=== PATIENT | male | born 1955 | race Caucasian/White ===

== ENCOUNTER 2017-05-17 20:48 | Emergency (ER) | payer BC ==
[2017-05-17 20:58] VITALS: BP 173/86; PULSE 78; TEMP 98.6; BMI 32.1
[2017-05-17] MEDS ORDERED: LIDO 2%/EPI 1:200000 PRESRVFRE (20 ML SDVIAL) ONE (20:58)
--- NOTE | 2017-05-17 20:58 | PDOC ---
History of Present Illness - General Chief Complaint: Injury Stated Complaint: LACERATION TO TOP OF HEAD. hIT HEAD ON THE CABINET Time Seen by Provider: 05/17/17 20:53 History Source: Patient Exam Limitations: No Limitations Past History - Past Medical History Allergies/Adverse Reactions: Allergies Allergy/AdvReac Type Severity Reaction Status Date / Time No Known Allergies Allergy Verified 05/17/17 20:50 Home Medications: Ambulatory Orders Amlodipine Besylate mg PO 05/17/17 Atorvastatin Ca [Lipitor] mg PO HS 05/17/17 Metformin HCl mg PO 05/17/17 Sertraline HCl mg PO 05/17/17 Valsartan/Hydrochlorothiazide [Valsartan-Hctz 160-12.5 mg Tab] each PO 05/17/17 *DC/Admit/Observation/Transfer - Discharge Dispostion Condition at time of disposition: Good - Referrals - Patient Instructions - Post Discharge Activity
[2017-05-17] MEDS ORDERED: DIPHTH,PERTUSS(ACELL),TET 0.5 ML DISP.SYRIN IM ONE (20:59)
--- NOTE | 2017-05-17 21:01 | PDOC ---
History of Present Illness - General History Source: Patient Exam Limitations: No Limitations - History of Present Illness Initial Comments: 05/17/17 21:02 The patient is a 61-year-old, with a significant past medical history of HTN and diabetes, who presents to the ED s/p sustaining a laceration to the top of his head an hour prior to presentation. The patient was seated at his desk and got up quickly to answer the phone and had left a cabinet door open. Pt is not on any anticoagulation medications. He denies any lightheadedness or blurry vision. He denies having any other injuries or symptoms. PAST MEDICAL HISTORY: HTN and diabetes PAST SURGICAL HISTORY: no significant history FAMILY HISTORY: no pertinent history SOCIAL HISTORY: Pt lives with family. MEDICATIONS: reviewed ALLERGIES: As per nursing notes General: No fevers or chills, no weakness, no weight loss HEENT: No change in vision. No sore throat,. No ear pain CardioVascular: No chest pain or shortness of breath Respiratory:No cough, or wheezing. Gastrointestinal: no nausea, vomiting, diarrhea or constipation, No rectal bleeding Genitourinary: No dysuria, hematuria, or frequency Musculoskeletal: No joint or muscle pain or swelling Neurologic: No headache, vertigo, dizziness or loss of consciousness Psychiatric: nor depression Skin: (+)laceration to the top of head. Endocrine: no increased thirst or abnormal weight change Allergic: no skin or latex allergy All other systems reviewed and normal GENERAL: The patient is awake, alert, and fully oriented, in no acute distress. HEAD: (+)Approximately 2 cm laceration on top of head. No active bleeding. No tenderness to palpation of cervical spine. EYES: Pupils equal, round and reactive to light, extraocular movements intact, sclera anicteric, conjunctiva clear. EXTREMITIES: Normal range of motion, no edema. NEUROLOGICAL: Normal speech, normal gait. PSYCH: Normal mood, normal affect. SKIN: Warm, Dry, normal turgor. <Ciara Roberson - Last Filed: 05/17/17 21:01> - General History Source: Patient Exam Limitations: No Limitations - History of Present Illness Initial Comments: A portion of this note was documented by scribe services under my direction. I have reviewed the details of the note, within reason, and agree with the documentation. The case summary and management plan written by me. Procedure note laceration repair Laceration anesthetized with 2% lidocaine pain with epinephrine. Laceration cleaned and closed with 2 mayra. Bacitracin applied patient tolerated well Assessment and plan: This is a 61-year-old male who comes in complaining of a laceration to the top of his head. Patient stood up quickly and hit in overhead cabinet that was left open. Patient had a small 2 cm laceration that was closed with mayra. Patient given head injury discharge instructions Patient discharged discharged home with his 05/17/17 21:21 <Rock Arita I - Last Filed: 05/17/17 21:23> - General Chief Complaint: Injury Stated Complaint: LACERATION TO TOP OF HEAD. hIT HEAD ON THE CABINET Time Seen by Provider: 05/17/17 20:53 Past History <Ciara Roberson - Last Filed: 05/17/17 21:01> - Past Medical History COPD: No Diabetes: Yes HTN: Yes Hypercholesterolemia: Yes Other medical history: GLUCOMA - Immunization History Immunization Up to Date: No - Suicide/Smoking/Psychosocial Hx Smoking History: Never smoked Hx Alcohol Use: No Drug/Substance Use Hx: No Substance Use Type: None <Rokc Arita I - Last Filed: 05/17/17 21:23> - Past Medical History Allergies/Adverse Reactions: Allergies Allergy/AdvReac Type Severity Reaction Status Date / Time No Known Allergies Allergy Verified 05/17/17 20:50 Home Medications: Ambulatory Orders Amlodipine Besylate mg PO 05/17/17 Atorvastatin Ca [Lipitor] mg PO HS 05/17/17 Metformin HCl mg PO 05/17/17 Sertraline HCl mg PO 05/17/17 Valsartan/Hydrochlorothiazide [Valsartan-Hctz 160-12.5 mg Tab] each PO 05/17/17 Review of Systems - Review of Systems Able to Perform ROS?: Yes <Ciara Roberson - Last Filed: 05/17/17 21:01> *Physical Exam - Vital Signs Last Vital Signs Temp Pulse Resp BP Pulse Ox 98.6 F 78 18 173/86 97 05/17/17 20:53 05/17/17 20:53 05/17/17 20:53 05/17/17 20:53 05/17/17 20:53 <Ciara Roberson - Last Filed: 05/17/17 21:01> - Vital Signs Last Vital Signs Temp Pulse Resp BP Pulse Ox 98.6 F 78 18 173/86 97 05/17/17 20:53 05/17/17 20:53 05/17/17 20:53 05/17/17 20:53 05/17/17 20:53 <Rock Arita I - Last Filed: 05/17/17 21:23> *DC/Admit/Observation/Transfer - Attestations Scribe Attestion: 05/17/17 21:05 Documentation prepared by Ciara Roberson, acting as medical billing coder for Rock Arita MD. <Ciara Roberson - Last Filed: 05/17/17 21:01> <Rock Arita I - Last Filed: 05/17/17 21:23> Diagnosis at time of Disposition: Laceration of scalp Qualifiers: Encounter type: initial encounter Qualified Code(s): S01.01XA - Laceration without foreign body of scalp, initial encounter - Discharge Dispostion Disposition: HOME Condition at time of disposition: Good - Patient Instructions Printed Discharge Instructions: DI for Closed Head Injury Additional Instructions: Staple removal in 7-9 days staple removal in 7-9 days. Keep the laceration dry for the next 72 hours. After 72 hours you can take a shower or get it wet. Return to the emergency department immediately with ANY new, persistent or worsening symptoms. Continue any medications as previously prescribed by your physician. You should follow up with your primary doctor as soon as possible regarding today's emergency department visit. . Please make sure your doctor reviews the results of your emergency evaluation. Thank you for coming to the Emergency Department today for your care. It was a pleasure to see you today. Please note that your evaluation is INCOMPLETE until you follow-up with your doctor.
== END 2017-05-17 21:15 | disposition home or self-care (01) ==
LOC: FER 20:48
PROC: 3E0234Z Introduction of Serum, Toxoid and Vaccine into Muscle, Percutaneous Approach (ICD-10-PCS; principal; 2017-05-17)
PROC: 0HQ0XZZ Repair Scalp Skin, External Approach (ICD-10-PCS; 2017-05-17)
DX: S01.01XA Laceration without foreign body of scalp, initial encounter (principal); I10 Essential (primary) hypertension; E11.9 Type 2 diabetes mellitus without complications; W22.8XXA Striking against or struck by other objects, initial encounter; Y93.89 Activity, other specified; Y92.59 Other trade areas as the place of occurrence of the external cause; Y99.0 Civilian activity done for income or pay; E78.00 Pure hypercholesterolemia, unspecified; H40.9 Unspecified glaucoma
CPT/HCPCS: 90715; 99282-25

== ENCOUNTER 2017-05-25 17:43 | Emergency (ER) | payer BC ==
[2017-05-25 17:51] VITALS: BP 138/83; PULSE 80; TEMP 97.8; BMI 26.4
--- NOTE | 2017-05-25 18:16 | PDOC ---
Suture Removal/Wound Check HPI - History of Present Illness Chief Complaint: Suture/Staple Removal(Here) Stated Complaint: STAPLE REMOVAL Time Seen by Provider: 05/25/17 17:59 - Onset of Previous Treatment Comment:: 05/25/17 18:16 Garrison removed 2 from the frontal scalp. Wound is well-healed. No sign of infection. Follow-up when necessary. Past History - Past Medical History Allergies/Adverse Reactions: Allergies Allergy/AdvReac Type Severity Reaction Status Date / Time No Known Allergies Allergy Verified 05/25/17 17:45 Home Medications: Ambulatory Orders Amlodipine Besylate mg PO 05/17/17 Atorvastatin Ca [Lipitor] mg PO HS 05/17/17 Metformin HCl mg PO 05/17/17 Sertraline HCl mg PO 05/17/17 Valsartan/Hydrochlorothiazide [Valsartan-Hctz 160-12.5 mg Tab] each PO 05/17/17 COPD: No DVT: No Diabetes: Yes HTN: Yes Hypercholesterolemia: Yes - Immunization History Immunization Up to Date: No - Suicide/Smoking/Psychosocial Hx Smoking History: Never smoked Have you smoked in the past 12 months: No Information on smoking cessation initiated: No Hx Alcohol Use: No Drug/Substance Use Hx: No Substance Use Type: None *DC/Admit/Observation/Transfer Diagnosis at time of Disposition: Removal of mayra - Discharge Dispostion Disposition: HOME Condition at time of disposition: Improved Admit: No - Referrals - Patient Instructions Printed Discharge Instructions: DI for Suture Removal - Post Discharge Activity
== END 2017-05-25 18:12 | disposition home or self-care (01) ==
LOC: FER 17:43
DX: Z48.02 Encounter for removal of sutures (principal)
CPT/HCPCS: 99281-25